=== PATIENT | male | born 1955 | race Caucasian/White ===

== ENCOUNTER 2020-04-07 14:02 | Emergency (ER) | payer MEDICAID, OTHER ==
[~2020-04-07] VITALS: Ht 177.8 cm; Wt 81.6 kg
--- NOTE | 2020-04-07 14:07 | NUR ---
Patient ambulated with steady gait. A&O x4. c/o SI. Patient denies any SI / HI but states he hears voices that tells him to harm himself. Patient states that this has been ongoing for 14 years. Breathing even and unlabored. no cough or SOB noted. Denies any CP / dizziness / blurred vision. Speech is clear and able to make needs known / follow commands. Safety precautions implemented. s/r up x2. no 1:1 sitter available at this time. [employer] services supervisor aware. frequent visual checks done
--- NOTE | 2020-04-07 14:10 | NUR ---
Dr. Hicks at bedside for MSE
[2020-04-07] MEDS ORDERED: IV NORMAL SALINE 1000 ML BAG IV ONE (14:15)
[2020-04-07 14:36] LABS: BASOPHILS # (AUTO) 0.2 K/uL (0.0-8.0); EOSINOPHILS # (AUTO) 0.5 K/uL (0.0-0.7); EOSINOPHILS % (AUTO) 5.7 % (0.0-7.0); HEMATOCRIT 40.6 % (36.7-47.1); HEMOGLOBIN 13.9 g/dL (12.5-16.3); LYMPHOCYTES # (AUTO) 2.5 K/uL (20.0-40.0); LYMPHOCYTES % (AUTO) 27.7 % (20.5-51.5); MEAN CORPUSCULAR HEMOGLOBIN 30.3 uug (23.8-33.4); MEAN CORPUSCULAR HGB CONC 34 g/dL (32.5-36.3); MEAN CORPUSCULAR VOLUME 88.8 fL (73.0-96.2); MONOCYTES # (AUTO) 0.7 K/uL (2.0-10.0); MONOCYTES % (AUTO) 7.6 % (0.0-11.0); NEUTROPHILS # (AUTO) 5.1 K/uL (1.8-8.9); PLATELET COUNT (AUTO) 239 K/uL (152-348); RED BLOOD CELL COUNT(AUTO) 4.57 MIL/uL (4.06-5.63); WHITE BLOOD COUNT (AUTO) 8.9 K/uL (3.6-10.2)
--- NOTE | 2020-04-07 14:45 | NUR ---
Security at bedside for 1:1
[2020-04-07 14:47] LABS: CARBON DIOXIDE 23 mmol/L (21-32); CHLORIDE 107 mmol/L (98-107); CREATININE 1.3 mg/dL (0.6-1.3); GLUCOSE 108 mg/dL (74-106); POTASSIUM 4.5 mmol/L (3.5-5.1); UREA NITROGEN, BLOOD 22 mg/dL (7-18)
[2020-04-07 14:56] LABS: ETHANOL < 3 MG/DL (0-0)
[2020-04-07 15:00] LABS: ALANINE AMINOTRANSFERASE 21 U/L (16-63); ALKALINE PHOSPHATASE 46 U/L (50-136); ASPARTATE AMINOTRANSFERASE 12 U/L (15-37); BILIRUBIN,DIRECT 0.1 mg/dL (0.0-0.2); BILIRUBIN,TOTAL 0.3 mg/dL (0.2-1.0); TOTAL PROTEIN, SERUM 7.4 g/dL (6.4-8.2)
[2020-04-07] MEDS ORDERED: LIDOCAINE 5% PATCH TD ONE ×2 (15:00→15:05)
[2020-04-07] MEDS ORDERED: KETOROLAC TROMETHAMINE 15 MG INJ IVP ONE (15:00)
[2020-04-07] MEDS ORDERED: CYCLOBENZAPRINE HCL 10 MG TABLET PO ONE (15:00)
--- NOTE | 2020-04-07 15:00 | NUR ---
Elizabeth BERNARD at bedside for 1:1
[2020-04-07] MEDS ORDERED: KETOROLAC TROMETHAMINE 15 MG INJ ONE (15:05)
[2020-04-07] MEDS ORDERED: CYCLOBENZAPRINE HCL 10 MG TABLET ONE (15:05)
[2020-04-07 15:07] LABS: ACETAMINOPHEN < 2.0 ug/mL (10-30)
--- NOTE | 2020-04-07 15:30 | NUR ---
Patient has been medically cleared by Dr. Hicks. Keena LEAL notified
--- NOTE | 2020-04-07 16:15 | NUR ---
Keena [employer] at bedside to evaluate patient
[2020-04-07 16:23] LABS: *BILIRUBIN,URIN NEGATIVE (NEGATIVE); *BLOOD, URINE NEGATIVE (NEGATIVE); *CLARITY,URINE CLEAR (CLEAR); *COLOR,URINE YELLOW (YELLOW); *KETONES,URINE NEGATIVE (NEGATIVE); *UROBILINOGEN,URINE 0.2 E.U./dl (NORMAL); LEUKOCYTE ESTERASE ,URINE NEGATIVE (NEGATIVE); NITRITE, URINE NEGATIVE (NEGATIVE); PH,URINE 5.5 (5.0-8.0); UGLUCOSE NEGATIVE (NEGATIVE)
[2020-04-07 16:29] LABS: *AMPHETAMINE, URINE NEGATIVE (NEGATIVE); *BARBITURATE, URINE NEGATIVE (NEGATIVE); *CANNABINOID, URINE NEGATIVE (NEGATIVE); *COCCAINE, URINE NEGATIVE (NEGATIVE); *OPIATE, URINE NEGATIVE (NEGATIVE); *PHENCYCLIDINE SCREEN,URINE NEGATIVE (NEGATIVE)
--- NOTE | 2020-04-07 16:40 | NUR ---
IV removed. Catheter intact and site benign. Pressure and 4x4 gauze applied to site. No bleeding noted.Patient discharged to home in stable condition. Written and verbal after care instructions given. Patient verbalizes understanding of instructions. Stressed follow up or return to ER for worsening s/s. Patient ambulated with steady gait. Denies any SI / HI at this time.
[2020-04-07 17:04] VITALS: BP 132/88
== END 2020-04-07 16:40 | disposition home or self-care (01) ==
LOC: ER 14:02
DX: F32.9 Major depressive disorder, single episode, unspecified (principal); R45.851 Suicidal ideations; G89.29 Other chronic pain; R44.0 Auditory hallucinations; R94.31 Abnormal electrocardiogram [ECG] [EKG]; F17.200 Nicotine dependence, unspecified, uncomplicated; J44.9 Chronic obstructive pulmonary disease, unspecified; M54.5 Low back pain
CPT/HCPCS: 36415; 71045; 80048; 80076; 80307 ×2; 80329; 81001; 82962; 85025; 93005; 96374; 99285; G0480; J1885; A4663; J7030

== ENCOUNTER 2020-09-12 01:53 | Emergency (ER) | payer SELFPAY ==
[~2020-09-12] VITALS: Ht 175.3 cm; Wt 77.1 kg
[2020-09-12 03:49] LABS: BASOPHILS % (AUTO) 0.4 % (0.0-2.0); EOSINOPHILS % (AUTO) 0.1 % (0.0-7.0); HEMATOCRIT 42.8 % (36.7-47.1); HEMOGLOBIN 14.4 g/dL (12.5-16.3); LYMPHOCYTES # (AUTO) 0.8 K/uL (20.0-40.0); MEAN CORPUSCULAR HEMOGLOBIN 30.1 uug (23.8-33.4); MEAN CORPUSCULAR HGB CONC 34 g/dL (32.5-36.3); MEAN CORPUSCULAR VOLUME 89.2 fL (73.0-96.2); MONOCYTES # (AUTO) 0.8 K/uL (2.0-10.0); MONOCYTES % (AUTO) 7.3 % (0.0-11.0); NEUTROPHILS # (AUTO) 8.6 K/uL (1.8-8.9); NEUTROPHILS % (AUTO) 84.2 % (38.5-71.5); PLATELET COUNT (AUTO) 327 K/uL (152-348); WHITE BLOOD COUNT (AUTO) 10.2 K/uL (3.6-10.2)
[2020-09-12 03:54] LABS: CREATININE 1.9 mg/dL (0.6-1.3); POTASSIUM 3.9 mmol/L (3.5-5.1)
--- NOTE | 2020-09-12 04:00 | NUR ---
Patient requested pain medication, MD Hollingsworth notified.
[2020-09-12 04:09] LABS: BILIRUBIN,TOTAL 1.5 mg/dL (0.2-1.0); TOTAL PROTEIN, SERUM 7.7 g/dL (6.4-8.2)
[2020-09-12] MEDS ORDERED: KETOROLAC TROMETHAMINE 30 MG INJ ONE (04:14)
[2020-09-12] MEDS ORDERED: KETOROLAC TROMETHAMINE 60 MG INJ IM ONE (04:15)
--- NOTE | 2020-09-12 04:15 | NUR ---
Patient seems upset, stating "I am the [employer], I want to speak to the [place] police department."
--- NOTE | 2020-09-12 04:15 | NUR ---
service superintendent arrived to take patient.
[2020-09-12] MEDS ORDERED: HALOPERIDOL LACTATE 5 MG/1 ML VIAL IM ONE (04:30)
--- NOTE | 2020-09-12 04:30 | NUR ---
Patient was uncooperative during radiology procedures, body shop technician brought patient back.
[2020-09-12] MEDS ORDERED: HALOPERIDOL LACTATE 5 MG/1 ML VIAL ONE (04:36)
[2020-09-12] MEDS ORDERED: KETAMINE HCL 500 MG/10 ML INJ IM ONE ×2 (05:00→05:30)
[2020-09-12] MEDS ORDERED: IV NS 1000 ML 1,000 ML IV ONE (05:00)
[2020-09-12] MEDS ORDERED: KETAMINE HCL 500 MG/10 ML INJ ONE (05:00)
--- NOTE | 2020-09-12 05:10 | NUR ---
premises technician arrived to take patient to CT scan again. Patient consented that he would have the procedure.
[2020-09-12 05:20] LABS: ETHANOL < 3 MG/DL (0-0)
[2020-09-12 05:24] LABS: ACETAMINOPHEN < 2.0 ug/mL (10-30)
--- NOTE | 2020-09-12 05:30 | NUR ---
Patient returned back from CT scan.
--- NOTE | 2020-09-12 07:00 | NUR ---
recieved pt in bed, on monitor, pt non-responsive at this time.
--- NOTE | 2020-09-12 07:38 | NUR ---
Alyssa () called without answer at this time
[2020-09-12 08:38] LABS: *AMPHETAMINE, URINE NEGATIVE (NEGATIVE); *CANNABINOID, URINE NEGATIVE (NEGATIVE); *COCCAINE, URINE NEGATIVE (NEGATIVE); *OPIATE, URINE NEGATIVE (NEGATIVE); *PHENCYCLIDINE SCREEN,URINE NEGATIVE (NEGATIVE)
[2020-09-12] MEDS ORDERED: MUPIROCIN 2% OINT 22 GM TUBE TP ONE (09:15)
[2020-09-12] MEDS ORDERED: MUPIROCIN 2% OINT 22 GM TUBE ONE (09:38)
--- NOTE | 2020-09-12 09:43 | NUR ---
pt trquesting to be d/efrem. pt says has a home//mother to go to. pants and jacket provided per pt request.
--- NOTE | 2020-09-12 09:44 | NUR ---
Patient discharged to home in stable condition. Written and verbal after care instructions given. Patient verbalizes understanding of instructions. Stressed follow up or return to ER for worsening s/s.pt walks in steady gait. pt axo to time/place/name and situation.
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
== END 2020-09-12 09:48 | disposition home or self-care (01) ==
LOC: ER 02:01
DX: F29 Unspecified psychosis not due to a substance or known physiological condition (principal); M62.82 Rhabdomyolysis; N28.9 Disorder of kidney and ureter, unspecified; S06.9X9A Unspecified intracranial injury with loss of consciousness of unspecified duration, initial encounter; R40.2362 Coma scale, best motor response, obeys commands, at arrival to emergency department; R40.2142 Coma scale, eyes open, spontaneous, at arrival to emergency department; R40.2252 Coma scale, best verbal response, oriented, at arrival to emergency department; Y09 Assault by unspecified means; Y92.830 Public park as the place of occurrence of the external cause; J44.9 Chronic obstructive pulmonary disease, unspecified; F17.200 Nicotine dependence, unspecified, uncomplicated; Z20.822 Contact with and (suspected) exposure to COVID-19; M50.30 Other cervical disc degeneration, unspecified cervical region
CPT/HCPCS: 36415; 70450; 72125; 80053; 80299; 80307; 80320; 82550; 85025; 87426; 93005; 96360; 96361; 96372; 99285; J1630; J1885; J3490; U0003; A4663; G0480; J7030